=== PATIENT | female | born 1960 | race Caucasian/White ===

== ENCOUNTER 2017-10-02 09:02 | Day surgery (SDC) | payer BC ==
[2017-10-02] MEDS ORDERED: Lactated Ringers 1,000 ML IV SCH (09:30)
[2017-10-02] MEDS ORDERED: Cyanocobalamin (Vitamin B12) 1,000 MCG/ML SDV IM ONE (10:00)
[2017-10-02] MEDS ORDERED: Propofol 200 MG/20 ML SDV ONE (10:23)
[2017-10-02] MEDS ORDERED: MVI, Adult with Vitamin K 10 ML, Thiamine 200 MG, Chromium/Copper/Mang/Selen/Zn 1 ML in... IV ONE ×4 (10:30)
[2017-10-02] MEDS ORDERED: Glycopyrrolate 0.2 MG/ML 2 ML SDV IVPUSH ONE (10:30)
[2017-10-02] MEDS ORDERED: Pantoprazole 40 MG Vial IVPUSH ONE (10:49)
[2017-10-02] MEDS ORDERED: Alum Hydrox/Mag Hydrox/Simeth 360 ML, Lidocaine 2% 60 ML PO PRN ×2 (12:24)
[2017-10-02] MEDS ORDERED: Lidocaine 2% Viscous Solution 15 ML Cup PO PRN (12:45)
--- NOTE | 2017-10-05 09:50 | OR ---
DATE OF PROCEDURE: 10/02/2017 PREOPERATIVE DIAGNOSIS: Dysphagia, status post Vishnu-en-Y gastric bypass. POSTOPERATIVE DIAGNOSIS: Dysphagia status post Vishnu-en-Y gastric bypass with a moderate pouch gastritis with erosions. OPERATIVE PROCEDURE: Upper GI endoscopy with biopsies of gastric pouch for CLOtest. ANESTHESIA: IV sedation. INDICATION FOR PROCEDURE: This 56-year-old female presented with some mild progressive dysphagia, status post a previous Vishnu-en-Y gastric bypass. The plan is to proceed with an upper GI endoscopy with dilation and/or biopsies as indicated. Potential risks including bleeding and perforation were discussed, and the patient wishes to proceed. DETAILS OF PROCEDURE: The patient was taken to the operating room and placed in a left lateral decubitus position. IV sedation was administered, after which the upper GI endoscope was passed orally through the length of the esophagus into the gastric pouch and from there through the gastrojejunostomy roughly 20 cm into the Vishnu limb. The esophagus was normal up to the level of the EG junction, where there was some inflammation. The gastric pouch itself was quite inflamed with there being some erosions at the esophagogastric junction. These did not extend significantly onto the jejunal mucosa, however, there was quite a bit of edema in the area, but no stricturing per se. The scope could easily be passed through that area. The remainder of the Vishnu limb was visualized, was unremarkable. Overall, it appeared the patient's symptoms are related to edema associated with the inflammation. Biopsies for CLOtest were obtained from the gastric pouch and the procedure then concluded. The patient was given Protonix 40 mg IV in the recovery room and then to begin Protonix 40 mg daily with an appointment for followup with Mora Walls to be made in 1 month. Ludwin Shaikh MD /[id number]
== END 2017-10-02 12:40 | disposition home or self-care (01) ==
LOC: JP.SDS 09:02
PROVIDERS: ATTEND Surgery
DX: K29.60 Other gastritis without bleeding (principal); K25.9 Gastric ulcer, unspecified as acute or chronic, without hemorrhage or perforation; Z98.84 Bariatric surgery status
CPT/HCPCS: 43239; 87081; A9270; C9113; J2704; J3411; J7120; J3490

== ENCOUNTER 2018-04-30 07:01 | Inpatient (IN) | payer BC, MEDICAID ==
[2018-04-30] MEDS ORDERED: Scopolamine 1.5 MG Transdermal Patch TOP ONE (07:15)
[2018-04-30] MEDS ORDERED: Acetaminophen 500 MG Tab PO ONE (07:15)
[2018-04-30] MEDS: Dextrose 5%-Lactated Ringers 1,000 ML IV SCH ×2 (07:51→21:24)
[2018-04-30] MEDS ORDERED: Albuterol/Ipratropium 3.0-0.5 MG/3 ML Neb Soln NEB ONE (08:00)
[2018-04-30] MEDS ORDERED: Ondansetron 4 MG/2 ML SDV ONE (08:14)
[2018-04-30] MEDS ORDERED: Rocuronium 50 MG/5 ML Vial ONE (08:14)
[2018-04-30] MEDS ORDERED: Glycopyrrolate 0.2 MG/ML 5 ML MDV ONE (08:14)
[2018-04-30] MEDS ORDERED: Propofol 200 MG/20 ML SDV ONE (08:14)
[2018-04-30] MEDS ORDERED: Dexamethasone 4 MG/ML SDV ONE (08:14)
[2018-04-30] MEDS ORDERED: Succinylcholine 200 MG/10 ML MDV ONE (08:14)
[2018-04-30] MEDS ORDERED: Neostigmine Methylsulfate 1 MG/ML 5 ML Syringe ONE (08:14)
[2018-04-30] MEDS ORDERED: Meropenem 500 MG in Sodium Chloride 0.9% 50 ML IV ONE (08:45)
[2018-04-30] MEDS ORDERED: Meropenem 500 MG SDV ONE (08:49)
[2018-04-30] MEDS ORDERED: Ketamine 500 MG/5 ML MDV IV SCH (09:00)
[2018-04-30] MEDS ORDERED: DEXAMETHASONE NERVRT SCH ×4 (09:00)
[2018-04-30] MEDS ORDERED: EPINEPHRINE NERVRT SCH ×4 (09:00)
[2018-04-30] MEDS ORDERED: SODIUM CHLORIDE 0.9% NERVRT SCH ×4 (09:00)
[2018-04-30] MEDS ORDERED: ROPIVACAINE NERVRT SCH ×4 (09:00)
[2018-04-30] MEDS ORDERED: Bupivacaine 0.5%/EPINEPHrine 1:200,000 50 ML MDV ONE (11:04)
[2018-04-30] MEDS ORDERED: Lactated Ringers 1,000 ML ONE (11:49)
[2018-04-30] MEDS ORDERED: HYDROmorphone/Normal Saline 15 MG/30 ML PCA IV PRN (12:21)
[2018-04-30] MEDS ORDERED: Naloxone 0.4 MG/ML SDV IV PRN ×2 (12:21→14:51)
[2018-04-30] MEDS ORDERED: Albuterol/Ipratropium 3.0-0.5 MG/3 ML Neb Soln INH PRN (14:00)
[2018-04-30] MEDS ORDERED: hydrOXYzine HCl 100 MG/2 ML SDV IM PRN (14:00)
[2018-04-30] MEDS: Albuterol/Ipratropium 3.0-0.5 MG/3 ML Neb Soln INH SCH ×2 (14:26→21:18)
[2018-04-30] MEDS ORDERED: diphenhydrAMINE 50 MG/ML SDV IVPUSH PRN (14:40)
[2018-04-30] MEDS ORDERED: Morphine PF 150 MG/30 ML PCA Syringe IV PRN (14:51)
[2018-04-30] MEDS: Acetaminophen 500 MG Tab PO SCH ×2 (15:09→19:29)
[2018-04-30] MEDS: Meropenem 500 MG in Sodium Chloride 0.9% 50 ML IV SCH ×2 (15:28→21:24)
[2018-04-30] MEDS: Formoterol/Mometasone 200-5 MCG 8.8 GM Inhaler IH SCH (21:19)
[2018-05-01] MEDS: Acetaminophen 500 MG Tab PO SCH ×4 (03:27→19:19)
[2018-05-01] MEDS: Ondansetron 4 MG/2 ML SDV IVPUSH PRN (03:33)
[2018-05-01] MEDS: Meropenem 500 MG in Sodium Chloride 0.9% 50 ML IV SCH (03:34)
[2018-05-01] MEDS: Albuterol/Ipratropium 3.0-0.5 MG/3 ML Neb Soln INH SCH ×4 (07:19→20:50)
[2018-05-01] MEDS: Formoterol/Mometasone 200-5 MCG 8.8 GM Inhaler IH SCH ×2 (07:22→20:48)
[2018-05-01] MEDS ORDERED: Loperamide 1 MG/5 ML Soln 5 ML UD Cup PO PRN (08:11)
[2018-05-01] MEDS: Dextrose 5%-Lactated Ringers 1,000 ML IV SCH ×2 (08:37→23:12)
[2018-05-01] MEDS: Loratadine 10 MG Tab PO SCH (09:50)
[2018-05-01] MEDS: Aspirin 81 MG Tab.EC PO SCH (09:50)
[2018-05-01] MEDS: Furosemide 20 MG Tab PO SCH (09:50)
[2018-05-01] MEDS: SCOPOLAMINE PATCH CHECK TOP SCH (09:51)
[2018-05-01] MEDS: Albumin 25% 12.5 GM in Premix Bag 1 BAG IV SCH ×2 (09:59→12:42)
--- NOTE | 2018-05-01 10:00 | PN ---
DATE OF SERVICE: 05/01/2018 The patient has been afebrile with stable vital signs. The pain control appeared to be satisfactory. Oral intake yesterday was fairly scant. We will hopefully work on that today and then we will start the tube feedings Billie Bruce. We will do a delayed primary closure of abdominal incision, and I think we will get x-ray contrast study via the J-tube at that time to get some idea of precisely what level we are at with the feeding tube. Otherwise, her hemoglobin is 7.8. We will give her a unit of packed RBCs today and one tomorrow. Her albumin is quite low at 1.8. Her tube feeding will be more tolerated with a higher albumin due to better GI tract absorption, so we will replace that over the next 4 days. Otherwise, maximize activity and work with pulmonary toilet. Ludwin Shaikh MD /[id number]
[2018-05-01] MEDS: Magnesium Sulfate/Water 2 GM in Premix Bag 1 BAG IV SCH ×2 (15:17→19:19)
[2018-05-02] MEDS: Acetaminophen 500 MG Tab PO SCH ×4 (01:27→19:24)
[2018-05-02] MEDS: Magnesium Sulfate/Water 2 GM in Premix Bag 1 BAG IV SCH ×4 (01:27→19:23)
[2018-05-02] MEDS ORDERED: Meropenem 500 MG SDV ONE (06:10)
[2018-05-02] MEDS ORDERED: Lidocaine 1% with EPINEPHrine 1:100,000 50 ML MDV ONE (06:10)
[2018-05-02] MEDS ORDERED: Bupivacaine 0.5% 50 ML MDV ONE (06:10)
[2018-05-02] MEDS ORDERED: Propofol 200 MG/20 ML SDV ONE (06:58)
[2018-05-02] MEDS ORDERED: fentaNYL 100 MCG/2 ML SDV ONE (06:58)
[2018-05-02] MEDS: Albuterol/Ipratropium 3.0-0.5 MG/3 ML Neb Soln INH SCH ×4 (07:16→21:34)
[2018-05-02] MEDS ORDERED: EPINEPHRINE NERVRT SCH ×4 (07:30)
[2018-05-02] MEDS ORDERED: DEXAMETHASONE NERVRT SCH ×4 (07:30)
[2018-05-02] MEDS ORDERED: SODIUM CHLORIDE 0.9% NERVRT SCH ×4 (07:30)
[2018-05-02] MEDS ORDERED: ROPIVACAINE NERVRT SCH ×4 (07:30)
[2018-05-02] MEDS: Formoterol/Mometasone 200-5 MCG 8.8 GM Inhaler IH SCH ×2 (07:34→21:33)
[2018-05-02] MEDS: SCOPOLAMINE PATCH CHECK TOP SCH (09:16)
[2018-05-02] MEDS: Furosemide 20 MG Tab PO SCH (09:16)
[2018-05-02] MEDS: Aspirin 81 MG Tab.EC PO SCH (09:17)
[2018-05-02] MEDS: Loratadine 10 MG Tab PO SCH (09:17)
[2018-05-02] MEDS ORDERED: Ibuprofen 400 MG Tab PO PRN (09:57)
[2018-05-02] MEDS ORDERED: Loratadine 10 MG Tab PO PRN (09:59)
[2018-05-02] MEDS: Albumin 25% 12.5 GM in Premix Bag 1 BAG IV SCH ×2 (10:02→11:17)
[2018-05-02] MEDS: Pantoprazole 40 MG Tab.CR PO SCH (10:18)
[2018-05-02] MEDS: Multivitamins with Iron Tab.Chew PO SCH (12:24)
[2018-05-02] MEDS: Amylase/Lipase/Protease 12,000 Unit Cap.CR PO SCH ×2 (12:24→17:24)
[2018-05-02] MEDS: Cholecalciferol (Vitamin D3) 1,000 Unit Tab PO SCH ×2 (12:24→21:32)
[2018-05-02] MEDS: Ondansetron 4 MG/2 ML SDV IVPUSH PRN ×2 (12:43→18:32)
[2018-05-02] MEDS: Dextrose 5%-Lactated Ringers 1,000 ML IV SCH (19:24)
[2018-05-02] MEDS: Simvastatin 20 MG Tab PO SCH (21:33)
[2018-05-03] MEDS: Acetaminophen 500 MG Tab PO SCH ×4 (01:57→20:28)
[2018-05-03] MEDS: Magnesium Sulfate/Water 2 GM in Premix Bag 1 BAG IV SCH ×4 (01:58→20:27)
[2018-05-03] MEDS: Dextrose 5%-Lactated Ringers 1,000 ML IV SCH ×2 (04:48→14:42)
[2018-05-03] MEDS: Albuterol/Ipratropium 3.0-0.5 MG/3 ML Neb Soln INH SCH ×4 (07:21→20:42)
[2018-05-03] MEDS: Formoterol/Mometasone 200-5 MCG 8.8 GM Inhaler IH SCH ×2 (07:23→20:29)
[2018-05-03] MEDS: Amylase/Lipase/Protease 12,000 Unit Cap.CR PO SCH ×4 (08:02→17:20)
[2018-05-03] MEDS: Pantoprazole 40 MG Tab.CR PO SCH (08:02)
[2018-05-03] MEDS: Multivitamins with Iron Tab.Chew PO SCH (08:03)
[2018-05-03] MEDS: Aspirin 81 MG Tab.EC PO SCH (08:04)
[2018-05-03] MEDS: Furosemide 20 MG Tab PO SCH (08:04)
[2018-05-03] MEDS: SCOPOLAMINE PATCH CHECK TOP SCH (08:16)
[2018-05-03] MEDS ORDERED: Magnesium Hydroxide 400 MG/5 ML Susp 30 ML Cup PO ONE (08:30)
[2018-05-03] MEDS ORDERED: Scopolamine 1.5 MG Transdermal Patch TOP SCH (09:00)
[2018-05-03] MEDS: Dronabinol 2.5 MG Cap PO SCH ×2 (09:29→20:42)
[2018-05-03] MEDS ORDERED: Bisacodyl 5 MG Tab PO ONE (09:30)
[2018-05-03] MEDS: Cholecalciferol (Vitamin D3) 1,000 Unit Tab PO SCH ×2 (09:31→20:31)
[2018-05-03] MEDS: Ondansetron 4 MG/2 ML SDV IVPUSH PRN ×3 (09:33→17:23)
--- NOTE | 2018-05-03 09:34 | CR ---
Abdomen 1V Flat CLINICAL HISTORY: Fistula FINDINGS: There is some generalized small bowel distention. There are surgical clips in the right low er abdomen. There is contrast in the in the ileum and cecal region which appears to be infused throug h a right lower quadrant the catheter. No free peritoneal contrast is identified. IMPRESSION: Right lower quadrant fistulogram with contrast in the ileum and the cecum. Small bowel distention may represent ileus
--- NOTE | 2018-05-03 09:35 | CR ---
OR Fluoro-NC CLINICAL HISTORY: Fistula FINDINGS: Single fluoroscopic images obtained the. There is contrast in the right lower quadrant smal l bowel via right lower quadrant catheter. This appears to be a fistulogram
--- NOTE | 2018-05-03 09:36 | CR ---
Abdomen 1V Flat CLINICAL HISTORY: Fistulogram FINDINGS: There is small bowel distention. There is contrast in the right colon from previous fistulo gram. No free peritoneal fluid is identified IMPRESSION: Fistulogram contrast is now in the right colon Small bowel distention persists
--- NOTE | 2018-05-03 09:37 | CR ---
Abdomen 1V Flat CLINICAL HISTORY: Previous fistulogram FINDINGS: There is some small bowel distention which is decreased since prior study. Contrast is seen in the right and proximal transverse colon. There is filling of the appendix. No free contrast seen in the peritoneum IMPRESSION: Persistent contrast in the right colon as traversed the proximal transverse colon Decreasing small bowel distention
--- NOTE | 2018-05-03 09:39 | PN ---
DATE OF SERVICE: 05/03/2018 SUBJECTIVE: Pain is controlled. She received 2 units of blood for hemoglobin of 7.8. Her hemoglobin this morning is 10.1. She had a delayed primary closure yesterday, so she states she slept most of the day. J-tube feedings are running 40 mL per hour. Remainder of review of systems negative for any pertinent positives and negatives. LABORATORY DATA: Potassium 6.4, magnesium is falsely elevated at 2.6 because she is receiving potassium rider. She is receiving albumin and her albumin today is 1.9 and phosphorus is 3.3. OBJECTIVE: GENERAL: nAita Antunez is a 57-year-old female. Alert and orientated. VITAL SIGNS: TPR is 98.4, 90, 16, and blood pressure 112/63. HEENT: Negative. NECK: Supple. HEART: Regular rate and rhythm. LUNGS: Clear. ABDOMEN: Dressings are dry and intact. Abdominal binder is on. EXTREMITIES: Without peripheral edema. ASSESSMENT: Limited laparotomy with lysis of adhesion and formation with placement of J- tube in the jejunostomy for malnutrition with upcoming chemo and radiation treatment for pancreatic cancer. DATE OF SURGERY: 04/30/2018. PLAN: 1. Set up home care for postoperative weakness and J-tube feeding. 2. Increase J-tube feeding to 50 mL per hour. 3. Dronabinol 2.5 mg p.o. b.i.d. before meals. 4. K5 45 millimoles through J-tube schedule. Have consent signed for port placement in a.m.. IV sedation 05/04/2018, Ludwin Shaikh MD., n.p.o. after midnight. Stop J tube feedings at 1 a.m., Ancef 2 g IV on-call to OR. Check CBC, CMP, and phos in a.m.. Good pulmonary toilet. 5. We will evaluate p.r.n. or in a.m.. Mora Walls PA-C /[id number]
[2018-05-03] MEDS ORDERED: Potassium Phosphates 3 mMole/ML 15 ML SDV ONE (10:00)
[2018-05-03] MEDS: Albumin 25% 12.5 GM in Premix Bag 1 BAG IV SCH ×2 (10:13→12:11)
--- NOTE | 2018-05-03 13:34 | OR ---
DATE OF PROCEDURE: 05/02/2018 PREOPERATIVE DIAGNOSIS: Status jejunostomy tube placement. POSTOPERATIVE DIAGNOSIS: Status jejunostomy tube placement. PROCEDURE PERFORMED: X-ray dye study of small bowel by a jejunostomy tube (02535). ANESTHESIA: None. INDICATION FOR PROCEDURE: The patient is status post jejunostomy tube placement. Due to the complexity of the procedure and intraabdominal adhesions, it was not entirely certain at what level the jejunostomy tube is placed and to obtain that information, an x-ray dye study was to be performed. DETAILS OF PROCEDURE: On the fluoroscopy table, 50 mL of Omnipaque was injected via the jejunostomy tube; with fluoroscopy being monitored, several images were taken which showed progression of the contrast through the small bowel. After a period of time, this phase was completed, and the patient will be receiving 3 more hourly x-rays to follow the course of the dye through the small bowel and to determine the amount of small bowel distal to the point of the jejunostomy tube. Ludwin Shaikh MD /[id number]
--- NOTE | 2018-05-03 14:01 | PN ---
DATE OF SERVICE: 05/02/2018 The patient has been afebrile with stable vital signs. She did tolerate the tube feedings yesterday and had a modest amount of oral intake. The plan will be to proceed with a delayed primary closure of the abdominal incision today and we will also do a contrast study through the jejunostomy tube to try to determine a general idea in terms of the lumen of the small bowel, that is going to be used for absorption of the jejunostomy feedings, which might modify the approach in terms of the content of those feedings and rate. Potential risks of the procedure were reviewed with the patient, and she wishes to proceed. We will resume her diet, and the tube feedings after completion of those 2 procedures today. Ludwin Shaikh MD /[id number]
--- NOTE | 2018-05-03 14:01 | OR ---
DATE OF PROCEDURE: 05/02/2018 PREOPERATIVE DIAGNOSIS: Open abdominal incision. POSTOPERATIVE DIAGNOSIS: Open abdominal incision. OPERATIVE PROCEDURE: Delayed primary closure of open abdominal incision. ANESTHESIA: Local plus IV sedation. INDICATION FOR PROCEDURE: The patient is 48 hours status post placement of a jejunostomy to provide an open approach. She had intermittently some minor contamination of the wound with that procedure, skin and subcutaneous tissue were left open to avoid high risk of wound infection. Potential risks of closure at this time including bleeding and infection were reviewed, and the patient wishes to proceed. DETAILS OF PROCEDURE: The patient was taken to the operating room and placed in a supine position. IV sedation was administered, after which the abdominal dressing was taken down, and the wound was found to be clean. The incision was then prepped and draped, anesthetized with 1% lidocaine mixed with Marcaine, and irrigated with meropenem-containing saline solution. The subcutaneous tissue was then closed with 2 layers of 3-0 Vicryl stitch, and the skin with lea and dressing applied. There were no evident complications. Ludwin Shaikh MD /[id number]
[2018-05-03] MEDS: Metoclopramide 10 MG/2 ML SDV IV SCH ×2 (14:41→20:45)
[2018-05-03] MEDS: Simvastatin 20 MG Tab PO SCH (20:44)
[2018-05-04] MEDS: Dextrose 5%-Lactated Ringers 1,000 ML IV SCH ×3 (01:49→21:02)
[2018-05-04] MEDS: Acetaminophen 500 MG Tab PO SCH ×4 (01:51→20:59)
[2018-05-04] MEDS: Magnesium Sulfate/Water 2 GM in Premix Bag 1 BAG IV SCH ×2 (01:54→09:59)
[2018-05-04] MEDS: Metoclopramide 10 MG/2 ML SDV IV SCH ×2 (02:05→09:58)
[2018-05-04] MEDS ORDERED: Bupivacaine 0.5% 50 ML MDV ONE (06:46)
[2018-05-04] MEDS ORDERED: Lidocaine 1% with EPINEPHrine 1:100,000 50 ML MDV ONE (06:46)
[2018-05-04] MEDS: Albuterol/Ipratropium 3.0-0.5 MG/3 ML Neb Soln INH SCH ×4 (07:06→20:59)
[2018-05-04] MEDS ORDERED: fentaNYL 100 MCG/2 ML SDV ONE (07:06)
[2018-05-04] MEDS ORDERED: Propofol 200 MG/20 ML SDV ONE (07:06)
[2018-05-04] MEDS ORDERED: Midazolam 1 MG/ML 2 ML SDV ONE (07:06)
[2018-05-04] MEDS: Formoterol/Mometasone 200-5 MCG 8.8 GM Inhaler IH SCH ×2 (07:06→20:58)
[2018-05-04] MEDS ORDERED: ceFAZolin 2 GM in Sodium Chloride 0.9% 50 ML IV ONE (07:30)
[2018-05-04] MEDS ORDERED: Ondansetron 4 MG/2 ML SDV ONE (07:57)
[2018-05-04] MEDS: Furosemide 20 MG Tab PO SCH (09:57)
[2018-05-04] MEDS: Multivitamins with Iron Tab.Chew PO SCH (09:57)
[2018-05-04] MEDS: Pantoprazole 40 MG Tab.CR PO SCH (09:57)
[2018-05-04] MEDS: Cholecalciferol (Vitamin D3) 1,000 Unit Tab PO SCH ×2 (09:58→21:01)
[2018-05-04] MEDS: Aspirin 81 MG Tab.EC PO SCH (09:58)
[2018-05-04] MEDS: Amylase/Lipase/Protease 12,000 Unit Cap.CR PO SCH ×3 (09:58→17:12)
[2018-05-04] MEDS: Albumin 25% 12.5 GM in Premix Bag 1 BAG IV SCH ×2 (10:00→12:24)
[2018-05-04] MEDS: SCOPOLAMINE PATCH CHECK TOP SCH (10:00)
[2018-05-04] MEDS: Dronabinol 2.5 MG Cap PO SCH ×2 (10:19→20:58)
[2018-05-04] MEDS: Simvastatin 20 MG Tab PO SCH (21:00)
[2018-05-05] MEDS: Acetaminophen 500 MG Tab PO SCH (02:04)
[2018-05-05] MEDS: Dextrose 5%-Lactated Ringers 1,000 ML IV SCH (05:37)
[2018-05-05] MEDS: Albuterol/Ipratropium 3.0-0.5 MG/3 ML Neb Soln INH SCH ×2 (07:20→11:07)
[2018-05-05] MEDS: Formoterol/Mometasone 200-5 MCG 8.8 GM Inhaler IH SCH (07:21)
[2018-05-05] MEDS ORDERED: Acetaminophen/HYDROcodone 325-5 MG Tab PO PRN (07:28)
[2018-05-05] MEDS ORDERED: Potassium Chloride 40 MEQ in Premix Bag 1 BAG IV ONE (07:29)
[2018-05-05] MEDS: Amylase/Lipase/Protease 12,000 Unit Cap.CR PO SCH ×2 (08:57→11:46)
[2018-05-05] MEDS: Pantoprazole 40 MG Tab.CR PO SCH (08:57)
[2018-05-05] MEDS: Cholecalciferol (Vitamin D3) 1,000 Unit Tab PO SCH (08:58)
[2018-05-05] MEDS: Aspirin 81 MG Tab.EC PO SCH (08:58)
[2018-05-05] MEDS: Multivitamins with Iron Tab.Chew PO SCH (08:58)
[2018-05-05] MEDS: Furosemide 20 MG Tab PO SCH (08:58)
[2018-05-05] MEDS ORDERED: Dronabinol 2.5 MG Cap PO SCH (09:00)
[2018-05-05] MEDS: Potassium Chloride 20 MEQ, Lidocaine 1% 2 ML in Sodium Chloride 0.9% 100 ML IV SCH ×2 (09:50→12:05)
[2018-05-05] MEDS: SCOPOLAMINE PATCH CHECK TOP SCH (09:52)
[2018-05-05] MEDS ORDERED: Loperamide 1 MG/5 ML Soln 5 ML UD Cup PO SCH (10:00)
--- NOTE | 2018-05-05 10:34 | DISCH ---
ADMISSION DIAGNOSES: 1. Malnutrition. 2. 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 3. Gastrointestinal fistula, on TPN with hypoalbuminemia. 4. Diabetes type 2. 5. Other and unspecified hyperlipidemia. 6. Asthma. 7. Hypertension. 8. Status post Vihsnu-en-Y gastric bypass surgery. 9. Unspecified surgical malabsorption. 10.B12 deficiency. 11.Cigarette dependence. 12.Nicotine disorder. 13.Abnormal weight loss. DISCHARGE DIAGNOSES: 1. Limited laparotomy with lysis of adhesions and formation of J-tube in the jejunostomy for malnutrition with upcoming chemotherapy and radiation treatment for pancreatic cancer, date of surgery 04/30/2018, surgeon, Ludwin Shaikh MD. 2. Delayed primary closure of open abdominal incision on 05/02/2018. 3. Catheter insertion of BROAD Port-A-Cath. Date of procedure, 05/04/2018. HISTORY: Anita Antunez is a 57-year-old female who had a Whipple procedure on 02/24/2018 and developed fistula postoperatively and was put on TPN. She continued to lose weight and she continued to be malnourished and presented to the hospital to have a feeding tube placed prior to radiation and chemotherapy for her bile duct stage IIB adenocarcinoma. After preoperative evaluation and discussion of possible risks and possible complications, she wished to proceed with surgical procedure. HOSPITAL COURSE: Anita had her surgery on 04/30/2018. She had a port placement on 05/04/2018. She had no operative complications. She was started on J-tube feedings and tolerated that well. She received adequate pain medication and physical therapy. Her potassium was replaced. Pain was well managed. Vital signs remained stable and she was able to be discharged to home with J-tube feedings on 05/05/2018 without complications. She will be having home care. PHYSICAL EXAMINATION: GENERAL: Anita Antunez is a 57-year-old female. VITAL SIGNS: Height is 5 feet 2.9 inches, weight is 120 pounds 8 ounces, BMI is 21. TPR is 97.6, 86, 16, and blood pressure 92/52. HEENT: Negative. NECK: Supple. HEART: Regular rate and rhythm. LUNGS: Clear. ABDOMEN: J-tube intact. Incision is healing well. Abdominal binder is on. EXTREMITIES: Without peripheral edema. DISPOSITION: Discharge to home. CONDITION: Stable and improving. DISCHARGE INSTRUCTIONS: The patient will be receiving home health care as well as physical therapy. Followup appointment with Ludwin Shaikh MD, at [facility] on 05/12/2018 at 10:30 a.m. HOME MEDICATIONS: 1. [place] 5/325 mg 1 to 2 every 4 hours p.r.n. pain, #40. 2. Creon 45607 units, take 2 capsules oral 3 times daily with meals, 180 with 5 refills. 3. Dronabinol (Marinol) 5 mg oral twice daily, #60. 4. Imodium 2 mg 4 times a day scheduled and 2 doses p.r.n. if needed. 5. May continue Tylenol 500 mg every 6 hours, but watch that she is not over the recommended daily dose. 6. Aspirin 81 mg daily. 7. Calcium carbonate and vitamin D3 1 oral twice daily. 8. Vitamin D3 1000 units daily. 9. B12 1000 mcg sublingual daily. 10.Advair 2 puffs inhalation twice daily. 11.Lasix 20 mg daily. 12.Claritin 10 mg daily. 13.Protonix 40 mg daily. 14.Multivitamin 1 chewable twice daily. 15.Zocor 10 mg oral at bedtime. 16.Vitamin B complex 1 tab daily. 17.Discontinue taking Motrin and Senokot-S. DIET AFTER DISCHARGE: Usual diet as tolerated. Drink 8 to 10 glasses of water a day if tolerated. ACTIVITY: 1. No lifting greater than 10 pounds for 6 weeks. Walk at least 6 times inside your home. 2. Driving, do not drive on pain medication. 3. Shower/bathing, may shower. Keep site clean and dry. Change dressing daily and as needed around the J-tube. Bacitracin around the skin area where abdominal binder. 4. Use incentive spirometer 10 times every hour while awake for 1 week. J-TUBE FEEDINGS: 1. Vital AF 1.2 formula feedings 70 mL per hour from [id number] number direction. 2. Flush feeding with 120 mL of free water every 4 hours. 3. Check CBC with diff, chemistry panel, iron, TIBC, magnesium and phos weekly. 4. If diarrhea develops, the Imodium as directed and may use tincture sure of opium 0.5 mL every 2 hours, maximum of 6 mL in 24 hours and if need to do that, she should call for a prescription.
[2018-05-05] MEDS ORDERED: Loperamide 2 MG Cap PO SCH (12:00)
--- NOTE | 2018-05-10 11:09 | OR ---
DATE OF PROCEDURE: 04/30/2018 PREOPERATIVE DIAGNOSIS: Malnutrition with associated poor oral intake and upcoming chemoradiation treatment. POSTOPERATIVE DIAGNOSIS: Malnutrition with associated poor oral intake and upcoming chemoradiation treatment. PROCEDURE PERFORMED: Limited laparotomy, lysis of adhesions, and formation of Witzel jejunostomy (39106). ANESTHESIA: General. PENSION MANAGER: Mora Walls PA-C. INDICATIONS FOR PROCEDURE: A 57-year-old status post pancreaticoduodenectomy, presented to undergo upcoming chemoradiation treatment. She has had relatively poor oral intake thus far and has been [facility]. The insurance will not cover her home TPN and given this in order to get her out of that facility and provide probably a more safe enteral nutrition, she is to undergo a small bowel tube placement, this will be a Witzel-type jejunostomy. She is status post Vishnu-en-Y gastric bypass as well as a Vishnu-en-Y drainage above her resected components of the Whipple procedure, and the plan will be to place a jejunostomy tube just distal to the second of those anastomosis. The potential risks including bleeding, infection, injury to underlying viscera, possible leaks from the tube as well as possible cardiopulmonary, septic, or hemorrhagic complications leading to were discussed, and the patient wishes to proceed. DETAILS OF PROCEDURE: The patient was taken to the operating room, placed in a supine position. After general endotracheal anesthesia was induced, a Baker catheter was inserted and the abdomen was prepped and draped. The patient was noted to have a large amount of inflammatory mass in the left lower quadrant as well as in the general epigastrium, the former related to a drainage tube and apparently fistula is now healed in the left lower quadrant and the latter related to the Whipple procedure. The right lower quadrant, however, is fairly soft and at that point, a decision was made to proceed with a right paramedian incision, so as to avoid entering the areas of significant inflammation and hopefully find a segment of small bowel that will be reasonably mobile to provide the placement of the jejunostomy tube. Given this, the right paramedian incision in the lower quadrant was made and carried down through the skin and subcutaneous tissue and through the anterior rectus sheath in a vertical direction. The rectus muscle was then mobilized laterally, so as to preserve its blood supply from the lateral direction. The underlying inferior epigastric vessels were also preserved during the course of the dissection. The peritoneum was then opened and there were some adhesions on a plane of this area which were taken down, eventually the segment of soft and mobile small bowel was evident at a point just distal to what was presumably the second of the Vishnu-en-Y jejunojejunostomies, we were not able to determine with any certainty the amount of small bowel from that point to the ileocecal valve due to the large amount of bowel caught up in the inflammatory process and left lower quadrant to dissect that out, would almost result in significant bowel resection, both the small and large bowel as this was extremely densely inflamed, however, there did not appear to be a point of small bowel obstruction in that area as the bowel proximal to that was not significantly distended. Given this, we opted to place the jejunostomy tube at a point roughly 10 cm distal to the identified jejunojejunostomy. A size 20 Baker catheter was then tunneled through the abdominal wall just lateral to the incision and a smaller enterotomy was made in the antimesenteric portion of the point of the jejunostomy and the tube was then placed with 3 mL of fluid being placed into the Baker catheter balloon. A Witzel-type jejunostomy was then constructed using interrupted 3-0 Vicryl stitch. Once this Witzel was created over roughly 1.5 cm segment, the 4 corner stitches around the tube emerging from the Jose Alfredo tunnel were placed and this tube was then pulled up through the abdominal wall and those corner stitches placed up the abdominal wall and tied. The bowel proximal and distal to that point was also brought up to the abdominal wall with some separate 3-0 Vicryl stitches and the jejunostomy tube itself fixed to the skin with a 3-0 Vicryl stitch. At that point, no further problems were noted. The area was irrigated with antibiotic-containing saline solution and the posterior peritoneum was approximated with running 2-0 Vicryl stitch as was the anterior rectus sheath. The skin and subcutaneous tissue were felt to be at significant risk for wound infection if primary closure was undertaken. This level was then packed open with iodoform gauze and the patient was taken to the recovery room in satisfactory condition. Plan will be to proceed with an x-ray study through the jejunostomy tube along with delayed primary closure in 48 hours. There were no evident complications. Physician tax assistant, Mora Walls, played an essential role in assisting in this case, helping to position the patient, retract structures as needed, as well as suturing and cutting sutures when indicated. Her presence improved patient safety and decreased the operative time. Ludwin Shaikh MD /[id number]
--- NOTE | 2018-05-10 13:00 | OR ---
DATE OF PROCEDURE: 05/04/2018 PREOPERATIVE DIAGNOSIS: Indications for central venous access. POSTOPERATIVE DIAGNOSIS: Indications for central venous access. OPERATIVE PROCEDURE: Placement of Bard PowerPort via left subclavian vein approach (63944). ANESTHESIA: Local plus IV sedation. INDICATION FOR PROCEDURE: The patient is going to be receiving some upcoming chemotherapy and a central venous access is planned for facilitation of that care. The patient had a PICC line in, which appeared to be likely associated with some degree of infection. This was removed several days ago, and the patient has now been afebrile since that time. Given this, it will be appropriate to proceed with the port at this time. Potential risks including bleeding, infection, injury to the lungs and/or vasculature during the placement were reviewed, and the patient wishes to proceed. DETAILS OF PROCEDURE: The patient was taken to the operating room and placed in the supine position. After IV sedation was administered, the upper chest and neck areas were prepped and draped. The left subclavian area was then anesthetized with 1% lidocaine mixed with Marcaine and left subclavian vein cannulated and from there the guidewire was manipulated into the superior vena cava. Some additional local was then injected. A transverse infraclavicular incision was made and carried down through the skin and subcutaneous tissue, then the plane behind the pectoralis major fascia, where the pocket was then bluntly dissected. The port was then assembled, flushed with heparinized saline, and cut such that the tip of the catheter would end up in the upper right atrium. The Bard PowerPort catheter was then placed via the introducer and peel-away catheter into that location without difficulty. The incision was then closed with 3-0 and 4-0 Vicryl stitch deep and a 4-0 Vicryl subcuticular stitch. The port was then aspirated and good return of blood was confirmed and then was re-flushed with heparinized saline. The patient was taken to the recovery room in a satisfactory condition. Ludwin Shaikh MD /[id number]
== END 2018-05-05 14:50 | disposition home or self-care (01) | DRG 988 ==
LOC: JP.SDS 07:01 → JP.SDSSCHI 07:01 → EDSTATUS 09:15 → JP.2SS 12:30
PROVIDERS: ADMIT Surgery; ATTEND Surgery
PROC: 0DHA0UZ Insertion of Feeding Device into Jejunum, Open Approach (ICD-10-PCS; 2018-04-30)
PROC: 3E0H76Z Introduction of Nutritional Substance into Lower GI, Via Natural or Artificial Opening (ICD-10-PCS; 2018-04-30)
PROC: 0JQ80ZZ Repair Abdomen Subcutaneous Tissue and Fascia, Open Approach (ICD-10-PCS; principal; 2018-05-02)
PROC: BD13YZZ Fluoroscopy of Small Bowel using Other Contrast (ICD-10-PCS; 2018-05-02)
PROC: 05H633Z Insertion of Infusion Device into Left Subclavian Vein, Percutaneous Approach (ICD-10-PCS; 2018-05-04)
DX: E46 Unspecified protein-calorie malnutrition (principal); C24.0 Malignant neoplasm of extrahepatic bile duct; K91.2 Postsurgical malabsorption, not elsewhere classified; C25.9 Malignant neoplasm of pancreas, unspecified; E88.09 Other disorders of plasma-protein metabolism, not elsewhere classified; E11.9 Type 2 diabetes mellitus without complications; E78.5 Hyperlipidemia, unspecified; J45.909 Unspecified asthma, uncomplicated; I10 Essential (primary) hypertension; E53.8 Deficiency of other specified B group vitamins; F17.210 Nicotine dependence, cigarettes, uncomplicated; Z68.21 Body mass index [BMI] 21.0-21.9, adult; Z79.899 Other long term (current) drug therapy; Z98.890 Other specified postprocedural states; Z48.1 Encounter for planned postprocedural wound closure
CPT/HCPCS: 36415; 36430; 74018; 74018-26; 76000; 76000-26; 80053; 82150; 82607; 82728; 83550; 83735; 84100; 85027; 86850; 86900; 86901; 86920; 86922; 87040; 87493; 94640; 94640-76; 94762; A9270-GY; C1788; J0171; J0330; J1100; J1170; J1200; J1642; J2185; J2250; J2270; J2405; J2704; J2710; J2765; J2795; J3010; J3475; J3480; J3490; J7030; J7042; J7050; J7120; J7620; P9016; P9047

== ENCOUNTER 2018-07-15 19:02 | Emergency (ER) | payer MEDICAID, OTHER ==
[2018-07-15] MEDS ORDERED: Lactated Ringers 1,000 ML IV SCH (20:45)
--- NOTE | 2018-07-15 20:57 | EDM.PDOC ---
ED HPI GENERAL MEDICAL PROBLEM - General Chief Complaint: Tube Replacement Stated Complaint: FEEDING TUBE Time Seen by Provider: 07/15/18 20:02 Source of Information: Reports: Patient, Family () History Limitations: Reports: No Limitations - History of Present Illness INITIAL COMMENTS - FREE TEXT/NARRATIVE: Feeding tube fell out this evening, here to have a new tube placed. no other concerns. Onset: Sudden Duration: Hour(s): Location: Reports: Abdomen (feeding tube fell out.) Quality: Reports: Other (feeding tube) Severity: Mild Improves with: Reports: None Context: Reports: Other (feeding tube fell out) Associated Symptoms: Reports: No Other Symptoms Treatments BEATER OUT: Reports: Other (see below) Other Treatments BEATER OUT: none - Related Data Allergies Allergy/AdvReac Type Severity Reaction Status Date / Time hydromorphone [From Dilaudid] Allergy Mild Itching Verified 06/25/18 10:45 Home Meds: Home Meds Aspirin [Halfprin] 81 mg PO DAILY 10/01/17 [History] Calcium Carbonate/Vitamin D3 [Calcium 600 + Vit D 200] 1 tab PO BID 10/01/17 [ History] Cyanocobalamin (Vitamin B-12) [Vitamin B-12] 1,000 mcg SL DAILY 10/01/17 [ History] Pediatric Multivit Comb No.101 [Children's Multivitamin] 1 tab PO BID 10/01/17 [ History] Vitamin B Complex [B Complex] 1 tab PO DAILY 10/01/17 [History] Cholecalciferol (Vitamin D3) [Vitamin D3] 1,000 unit PO DAILY 04/29/18 [History] Fluticasone/Salmeterol [Advair 500-50] 2 puff INH BID 04/29/18 [History] Pantoprazole Sodium [Protonix] 40 mg PO DAILY 04/29/18 [History] Simvastatin [Zocor] 10 mg PO BEDTIME 04/29/18 [History] Acetaminophen 500 mg PO Q6HR PRN #0 05/05/18 [Rx] Dronabinol [Marinol] 5 mg PO BID #60 cap 05/05/18 [Rx] Loperamide [Imodium] 2 mg PO ASDIRECTED PRN #200 ml 05/05/18 [Rx] Lactobacillus Rhamnosus GG [Culturelle] 1 cap PO BID cap 08/09/18 [Rx] Past Medical History HEENT History: Reports: Impaired Vision Cardiovascular History: Reports: None Respiratory History: Reports: Asthma, SOB Gastrointestinal History: Reports: Colon 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: Hematologic History: Reports: B12 Deficiency, Blood Transfusion(s), Iron Deficiency Oncologic (Cancer) History: Reports: Pancreatic - Infectious Disease History Infectious Disease History: Reports: None - Past Surgical History Head Surgeries/Procedures: Reports: None HEENT Surgical History: Reports: None Cardiovascular Surgical History: Reports: None Respiratory Surgical History: Reports: None GI Surgical History: Reports: Cholecystectomy, Colonoscopy Oncologic Surgical History: Reports: None Dermatological Surgical History: Reports: None, Other (See Below) Social & Family History - Family History Family Medical History: Noncontributory - Caffeine Use Caffeine Use: Reports: None - Living Situation & Occupation Living situation: Reports: Occupation: Disabled ED ROS GENERAL - Review of Systems Review Of Systems: See Below Constitutional: Reports: Other (weakness/fatigue due to pancreatic cancer) GI/Abdominal: Reports: Other (feeding tube fell out) Skin: Reports: No Symptoms ED EXAM, GENERAL - Physical Exam Exam: See Below Exam Limited By: No Limitations General Appearance: Alert, WD/WN, No Apparent Distress, Cachetic GI/Abdominal: Normal Bowel Sounds, Soft, Non-Tender, Other (right mid abdominal opening is noted, clear fluid, no redness or bleeding.) Neurological: Alert, Oriented, CN II-XII Intact, Normal Cognition, Normal Gait Psychiatric: Normal Affect, Normal Mood Skin Exam: Warm, Dry, Pallor ED GENERAL MEDICAL PROCEDURES - Additional/Other Procedure(s) Other (Free Text) Procedure(s): s; "feeding tube fell out this evening" o; abdomen with circular opening, clear discharge, non tender a; feeding tube replacement p; clear abdominal opening of fluid, applied k-y gel to 16fr rhodes cath, gently inserting into opening, balloon inflated with 5 cc normal saline, secured to abdomen with tape. no complications. xray abdomen one view taken. no air fluid levels are seen. contacted JOSUÉ Musa, [facility], she advised if Mrs. Antunez has any concerns to contact office in am and she will be seen. otherwise no further intervention is needed. reviewed feeding tube care with and Mrs. Antunez, then agree with plan of care. Course - Vital Signs Last Recorded V/S: Last Vital Signs Temp 35.7 C 07/15/18 20:59 Pulse 90 07/15/18 20:59 Resp 16 07/15/18 20:59 BP 130/77 07/15/18 20:59 Pulse Ox 97 07/15/18 20:59 - Orders/Labs/Meds Orders: Active Orders 24 hr Category Date Time Status Abdomen 1V Flat [CR] Stat Exams 07/15/18 20:45 Taken Meds: Medications Discontinued Medications Generic Name Dose Route Start Last Admin Trade Name Sherry PRN Reason Stop Dose Admin Lactated Ringer's 1,000 mls @ 999 mls/hr 07/15/18 20:45 Ringers, Lactated IV ASDIRECTED ALVARO Departure - Departure Time of Disposition: 21:05 Disposition: Home, Self-Care 01 Condition: Good Clinical Impression: Complication of feeding tube - Discharge Information *PRESCRIPTION DRUG MONITORING PROGRAM REVIEWED*: Not Applicable *COPY OF PRESCRIPTION DRUG MONITORING REPORT IN PATIENT SUE: Not Applicable Instructions: How to Care for a Feeding Tube, [id number] Referrals: Ludwin Shaikh MD [Primary Care Provider] - Forms: ED Department Discharge Care Plan Goals: Feeding Tube replacement -new feeding tube placed 16 fr. with 5 cc saline in balloon -follow up with [facility] if has any concerns, call Mora Walls in morning -return to ER if has any concerns or problems with feeding tube Return to ER as needed or for any concerns. - Problem List & Annotations (1) Encounter for feeding tube placement SNOMED Code(s): 136121216 Code(s): Z78.9 - OTHER SPECIFIED HEALTH STATUS Status: Acute Priority: High - Problem List Review Problem List Initiated/Reviewed/Updated: Yes - My Orders Last 24 Hours: My Active Orders 07/15/18 20:45 Abdomen 1V Flat [CR] Stat - Assessment/Plan Last 24 Hours: My Active Orders 07/15/18 20:45 Abdomen 1V Flat [CR] Stat Plan: Feeding Tube replacement -new feeding tube placed 16 fr. with 5 cc saline in balloon -follow up with [facility] if has any concerns, call Mora Walls in morning -return to ER if has any concerns or problems with feeding tube Return to ER as needed or for any concerns.
--- NOTE | 2018-07-16 08:32 | CR ---
Abdomen 1V Flat CLINICAL HISTORY: Feeding tube FINDINGS: The bowel gas pattern is nonobstructive. No abnormal masses are noted. There is pneumobilia which was seen on prior study. There is tubing over the right lower quadrant. This was present CT in May. There is a curvilinear density in the upper abdomen which is appears to be portion of a feed ing tube. This is also present on the prior CT. There are numerous surgical clips and sutures. IMPRESSION: Tubing is seen in the right lower quadrant and in the epigastric region similar to a chyna or CT from May. Nonacute intestinal gas pattern Persistent pneumobilia related to prior surgery
== END 2018-07-15 21:05 | disposition home or self-care (01) ==
LOC: JP.ED 19:02
DX: K94.23 Gastrostomy malfunction (principal); Z79.82 Long term (current) use of aspirin; Z79.899 Other long term (current) drug therapy
CPT/HCPCS: 43752; 74018; 74018-26; 99283; 99283-25